=== PATIENT | male | born 1990 | race Caucasian/White ===

== ENCOUNTER → 2022-01-31 07:34 | Outpatient (CLI) | payer OTHER, SELFPAY ==
--- NOTE | ~2022-01-31 | US_ITS ---
EXAMINATION: US right upper quadrant DATE: 01/31/2022 08:16 INDICATION: Elevated liver enzymes TECHNIQUE: Multiple grayscale and Doppler ultrasound images of the abdomen were obtained. COMPARISON: None available FINDINGS: Bowel gas limits evaluation of the pancreas. The liver is normal with normal echogenicity a nd echotexture. No surface nodularity. Normal hepatopetal flow in the main portal vein. The gallbladd er is normal with no abnormal wall thickening, pericholecystic fluid or stones. The normal common heidi e duct measures 4 mm. There was no sonographic Addison sign. IMPRESSION: 1. Normal sonographic study of the gallbladder. Reviewed, dictated and finalized at location A.
== END ==
PROVIDERS: PCP Family Medicine; Visit Provider Family Medicine
DX: R74.8 Abnormal levels of other serum enzymes (principal)
CPT/HCPCS: 76705